=== PATIENT | female | born 1970 | race Hispanic/Latino ===

== ENCOUNTER 2018-12-18 14:36 | Emergency (ER) | payer MEDICARE ==
[2018-12-18 15:41] VITALS: O2SAT 96
--- NOTE | 2018-12-18 17:20 | ED PDOC ---
Lower Extremity Pain/Injury Time Seen by Provider: 12/18/18 16:12 Chief Complaint (Nursing): Weakness/Neurological Deficit Chief Complaint (Provider): Right ankle pain History Per: Patient History/Exam Limitations: no limitations Onset/Duration Of Symptoms: Days Current Symptoms Are (Timing): Still Present Additional Complaint(s): 48 year old female with a history of depression, anxiety and psychological problems presents to the ED for an evaluation of right ankle pain onset for a couple of days. Patient states she hit the metal part of the shelf at [facility]. She applied ice to the area for the swelling to decrease. She can bear light weight. Currently, she reports of tingling of lips, fingers and toes. Otherwise, she has not taken any medication for pain. PMD: Joe Heller - Ankle/Foot Description Of Injury: Struck Against Object Currently Unable To: Bear Weight (light ) Alleviating Factor(s): Ice Therapy Past Medical History Reviewed: Historical Data, Nursing Documentation, Vital Signs Vital Signs: Last Vital Signs Temp 98.0 F 12/18/18 15:39 Pulse 110 H 12/18/18 15:39 Resp 16 12/18/18 15:39 BP 153/97 H 12/18/18 15:39 Pulse Ox 96 12/18/18 15:39 - Medical History PMH: Anxiety - Family History Family History: States: Unknown Family Hx - Social History Current smoker - smoking cessation education provided: No Alcohol: None Drugs: Denies - Home Medications Home Medications: Ambulatory Orders Medication Instructions Recorded Naproxen 500 mg PO BID #30 tab 12/18/18 - Allergies Allergies/Adverse Reactions: Allergies Allergy/AdvReac Type Severity Reaction Status Date / Time orange juice Allergy ITCHING Verified 12/18/18 15:39 theophylline [From [facility]] Allergy SHORTNESS Verified 12/18/18 15:39 OF BREATH Review of Systems ROS Statement: Except As Marked, All Systems Reviewed And Found Negative Constitutional: Negative for: Fever Musculoskeletal: Positive for: Foot Pain (right ankle) Neurological: Positive for: Other (tingling to lips, fingers and toes ). Negative for: Weakness, Numbness Physical Exam - Reviewed Nursing Documentation Reviewed: Yes Vital Signs Reviewed: Yes - Physical Exam Appears: Positive for: Well, Non-toxic, No Acute Distress Skin: Positive for: Normal Color, Warm, Dry. Negative for: Rash Extremity: Positive for: Other (swelling and tenderness of the right lateral ankle, lateral malleolus). Negative for: Normal ROM (limited ROM secondary to pain ), Deformity Neurological/Psych: Positive for: Awake, Alert, Normal Tone, Oriented (x3) - ECG O2 Sat by Pulse Oximetry: 96 (RA) Pulse Ox Interpretation: Normal - Radiology X-Ray: Interpreted by Me, Viewed By Me X-Ray Interpretation: No Acute Disease Medical Decision Making Medical Decision Making: Time: 1622 Impression: right ankle pain r/o fracture of dislocation Plan: EKG Ibuprofen 600 mg Ankle right 3 views [RAD] Reevaluation 1715 X-ray of right ankle does not present any fracture, as read by Dr. Holcomb 172 Right ankle xray: FINDINGS: BONES: Plantar and Achilles Tendon insertion calcaneal spurs. No fractures identified. JOINTS: Normal. No osteoarthritis. Ankle mortise maintained. Talar dome intact SOFT TISSUES: Lateral soft tissue swelling without distal fibular or adjacent osseous abnormality. OTHER FINDINGS: None. IMPRESSION: Soft tissue swelling without acute articular or osseous abnormality. Scribe Attestation: Documented by Marcella Chappell, acting as a scribe for Denisha Holcomb MD Provider Scribe Attestation: All medical record entries made by the Scribe were at my direction and personally dictated by me. I have reviewed the chart and agree that the record accurately reflects my personal performance of the history, physical exam, medical decision making, and the department course for this patient. I have also personally directed, reviewed, and agree with the discharge instructions and disposition. [facility] Ankle Rules - Malleolar zone tenderness? Posterior edge or tip of lateral malleolus: Yes Posterior edge or tip of medial malleolus: No Inability to bear weight both immediately and in the ED: No - XRAY INDICATED Is an ankle x-ray indicated based on findings?: Yes Disposition - Clinical Impression Clinical Impression: Ankle sprain - Patient ED Disposition Is Patient to be Admitted: No Doctor Will See Patient In The: Office Counseled Patient/Family Regarding: Studies Performed, Diagnosis, Need For Foll owup - Disposition Referrals: Podiatry Clinic [Outside] Disposition: Routine/Home Disposition Time: 17:43 Condition: GOOD Additional Instructions: AVIS WHITNEY, thank you for letting us take care of you today. Your provider was Denisha Holcomb MD and you were treated for RT ANKLE PAIN. The emergency medical care you received today was directed at your acute symptoms. If you were prescribed any medication, please fill it and take as directed. It may take several days for your symptoms to resolve. Return to the Emergency Department if your symptoms worsen, do not improve, or if you have any other problems. Please contact your doctor or call one of the physicians/clinics you have been referred to that are listed on the Patient Visit Information form that is included in your discharge packet. Bring any paperwork you were given at discharge with you along with any medications you are taking to your follow up visit. Our treatment cannot replace ongoing medical care by a primary care provider outside of the emergency department. Thank you for allowing the [facility] team to be part of your care today. Prescriptions: Naproxen 500 mg PO BID #30 tab Instructions: Ankle Sprain
--- NOTE | 2018-12-18 17:28 | RAD ---
Date of service: 12/18/2018 PROCEDURE: Right Ankle Radiographs. HISTORY: Posttraumatic ankle pain COMPARISON: None available. TECHNIQUE: 3 views obtained. FINDINGS: BONES: Plantar and Achilles Tendon insertion calcaneal spurs. No fractures identified. JOINTS: Normal. No osteoarthritis. Ankle mortise maintained. Talar dome intact SOFT TISSUES: Lateral soft tissue swelling without distal fibular or adjacent osseous abnormality. OTHER FINDINGS: None. IMPRESSION: Soft tissue swelling without acute articular or osseous abnormality.
[2018-12-18 17:30] VITALS: BP 140/82; PULSE 83; RESP 18; TEMP 98.9
--- NOTE | 2018-12-19 10:04 | CARD ---
APPROVED REPORT Date of service: 12/18/2018 EKG Measurement Heart [id number] <Conclusion> Normal sinus rhythm Low voltage QRS Cannot rule out Anteroseptal infarct, age undetermined Abnormal ECG
== END 2018-12-18 18:02 | disposition home or self-care (01) ==
LOC: H.ER 14:36
DX: S93.401A Sprain of unspecified ligament of right ankle, initial encounter (principal); W22.09XA Striking against other stationary object, initial encounter; Y92.512 Supermarket, store or market as the place of occurrence of the external cause